=== PATIENT | male | born 1975 ===

== ENCOUNTER 2017-07-13 10:57 | Emergency (ER) | payer OTHER ==
[2017-07-13 11:04] VITALS: BP 143/92; PULSE 94; TEMP 98.4; O2SAT 98
[2017-07-13 12:51] VITALS: RESP 16
--- NOTE | 2017-07-13 13:28 | C.PDOC ---
History Of Present Illness 42 y/o male presents with hard collar in place on neck; pt sts he had surgery on his neck on 07/10/17 at [facility] and reports that he was told verbally to remove one of the drains left in wound today on left anterior neck. pt has discharge paperwork with him; this was carefully read by me and there is no mention of drain to be removed; pt has f/u appt on 07/22. discussed with patient that I recommend that he call his doctor to discuss this or return to [facility] for evaluation. pt c/o throat pain, is able to swallow pills and fluids, is taking percocet as prescribed for pain, has no fever. Time Seen by Provider: 07/13/17 11:27 Chief Complaint (Nursing): Wound Check History Per: Patient History/Exam Limitations: no limitations Past Medical History Reviewed: Historical Data, Nursing Documentation, Vital Signs Vital Signs: Last Vital Signs Temp 98.4 F 07/13/17 11:03 Pulse 94 H 07/13/17 11:03 Resp 16 07/13/17 12:30 BP 143/92 H 07/13/17 11:03 Pulse Ox 98 07/13/17 20:37 - Medical History PMH: Back Problems, COPD, Depression, Emphysema, Hypercholesterolemia Other Surgeries: c5-6 diskectomy done 07/10/17 at [facility] Procedures INJECT/INFUSE NEC (02/24/14) Family History: States: Unknown Family Hx - Social History Hx Tobacco Use: No Hx Alcohol Use: No Hx Substance Use: No - Immunization History Hx Tetanus Toxoid Vaccination: Yes Hx Influenza Vaccination: Yes Hx Pneumococcal Vaccination: Yes Review Of Systems Constitutional: Negative for: Fever, Chills ENT: Positive for: Throat Pain. Negative for: Throat Swelling Neurological: Negative for: Weakness, Numbness Physical Exam - Physical Exam Appears: Non-toxic, No Acute Distress, Other (hard collar in place, bandage noted to left side neck with no stains noted on bandaged. ) Skin: Warm, Dry Oral Mucosa: Moist Tongue: Normal Appearing Lips: Normal Appearing Teeth: Normal Dentition Gingiva: Normal Appearing Throat: Erythema (mild), No Exudate, Other (no tonsillar enlargement) Neck: Other (hard collar in place. ) ED Course And Treatment O2 Sat by Pulse Oximetry: 98 Disposition Counseled Patient/Family Regarding: Diagnosis, Need For Followup - Disposition Disposition: HOME/ ROUTINE Disposition Time: 12:30 Condition: GOOD Additional Instructions: Follow up with your doctor at [facility]. Forms: [facility] (Uruguayan), General Discharge Instructions - Clinical Impression Clinical Impression: Surgery follow-up
== END 2017-07-13 12:20 | disposition home or self-care (01) ==
LOC: C.ER 10:57
DX: Z48.89 Encounter for other specified surgical aftercare (principal)

== ENCOUNTER 2018-02-19 13:04 | Emergency (ER) | payer OTHER ==
[2018-02-19 13:08] VITALS: BP 135/81; PULSE 88; RESP 18; TEMP 98.4; O2SAT 99
--- NOTE | 2018-02-19 13:43 | C.PDOC ---
History Of Present Illness Patient is a 42 year old male with PMHx DMII who presents today for 1 week of nasal congestion and sore throat. Patient said his nasal mucous is clear. Patient denies fevers, cough, abdominal pain, nausea, vomiting, or constipation. Patient says his sore throat is getting worse and it is painful to swallow. Patient has not taken any medication for his throat. Time Seen by Provider: 02/19/18 13:14 Chief Complaint (Nursing): ENT Problem History/Exam Limitations: no limitations Onset/Duration Of Symptoms: Days Current Symptoms Are (Timing): Still Present Location Of Pain: Throat Sick Contacts (Context): None Associated Symptoms: Sore Throat, Sinus Drainage, Nasal Congestion. denies: Fever, Chills, Cough, Nausea, Vomiting, Diarrhea Ear Symptoms: Bilateral: None Severity: Moderate Additional History Per: Patient Past Medical History Vital Signs: Last Vital Signs Temp 98.4 F 02/19/18 13:07 Pulse 88 02/19/18 13:07 Resp 18 02/19/18 13:07 BP 135/81 02/19/18 13:07 Pulse Ox 99 02/19/18 13:07 - Medical History PMH: Back Problems, Diabetes, Hypercholesterolemia Surgical History: Back Surgery Other Surgeries: R shoulder surgery - [facility] Procedures INJECT/INFUSE NEC (02/24/14) Family History: States: Unknown Family Hx - Social History Hx Tobacco Use: No Hx Alcohol Use: No Hx Substance Use: No - Immunization History Hx Tetanus Toxoid Vaccination: Yes Hx Influenza Vaccination: Yes Hx Pneumococcal Vaccination: Yes Review Of Systems Constitutional: Negative for: Fever, Chills ENT: Positive for: Nose Discharge, Nose Congestion, Throat Pain. Negative for: Ear Pain, Nose Pain Cardiovascular: Negative for: Chest Pain Respiratory: Negative for: Cough, Shortness of Breath Gastrointestinal: Negative for: Nausea, Vomiting, Abdominal Pain, Diarrhea, Constipation Physical Exam - Physical Exam Appears: Non-toxic, No Acute Distress Skin: Normal Color Eye(s): bilateral: Normal Inspection, PERRL Ear(s): Bilateral: Normal Nose: Normal Oral Mucosa: Moist Throat: Erythema (mild erythema), No Exudate Lymphatic: Normal Exam Cardiovascular: Rhythm Regular Respiratory: Normal Breath Sounds Neurological/Psych: Oriented x3 ED Course And Treatment O2 Sat by Pulse Oximetry: 99 Medical Decision Making Medical Decision Making: Plan: Discharge home. supportive care- Ibuprofen or Tylenol, salt water gurgles, increase fluids Disposition - Disposition Referrals: [facility] [Outside] [facility] [Outside] Disposition: HOME/ ROUTINE Disposition Time: 14:10 Condition: GOOD Additional Instructions: EVIN PASTRANA, thank you for letting us take care of you today. Your provider was Minda Moore MD and you were treated for NECK/THROAT PAIN. The emergency medical care you received today was directed at your acute symptoms. If you were prescribed any medication, please fill it and take as directed. It may take several days for your symptoms to resolve. Return to the Emergency Department if your symptoms worsen, do not improve, or if you have any other problems. Please contact your doctor or call one of the physicians/clinics you have been referred to that are listed on the Patient Visit Information form that is included in your discharge packet. Bring any paperwork you were given at discharge with you along with any medications you are taking to your follow up visit. Our treatment cannot replace ongoing medical care by a primary care provider outside of the emergency department. Thank you for allowing the [facility] team to be part of your care today. Instructions: Viral Upper Respiratory Infection, Adult (DC), Cough, Runny Nose, and the Common Cold Forms: [facility] (Albanian) Print Language: KINYARWANDA - Clinical Impression Clinical Impression: Upper respiratory disease
== END 2018-02-19 14:20 | disposition home or self-care (01) ==
LOC: C.ER 13:04
DX: J06.9 Acute upper respiratory infection, unspecified (principal); E11.9 Type 2 diabetes mellitus without complications; E78.00 Pure hypercholesterolemia, unspecified